=== PATIENT | male | born 1970 | race African-American/Black ===

== ENCOUNTER 2021-11-08 13:46 | Emergency (ER) | payer MEDICAID ==
[~2021-11-08] VITALS: Ht 177.8 cm; Wt 95.5 kg
[2021-11-08] MEDS ORDERED: normal saline 1000ML IV soln IVB ONE (13:50)
[2021-11-08] MEDS ORDERED: proCHLORperazine 10 MG/2 ml inj IV ONE (13:50)
[2021-11-08] MEDS ORDERED: mag hydrox/Alum hydrox/simeth 30ml oral suspension PO ONE (13:50)
[2021-11-08] MEDS ORDERED: famotidine/PF 10 mg/ml inj IV ONE (13:50)
[2021-11-08] MEDS ORDERED: sucralfate 1 gm tablet PO ONE (13:50)
[2021-11-08] MEDS ORDERED: LIDOcaine Viscous 15ml cup MM ONE (13:50)
[2021-11-08 14:18] LABS: BASOPHILS % (AUTO) 0.3 % (0-1); EOSINOPHILS # (AUTO) 0.1 X10'3 (0-0.9); EOSINOPHILS % (AUTO) 1.1 % (0-6); HEMATOCRIT 47.8 % (42.0-52.0); HEMOGLOBIN 16.1 g/dl (14.0-17.9); LYMPHOCYTES # (AUTO) 1.8 X10'3 (1.1-4.8); LYMPHOCYTES % (AUTO) 25.7 % (21-51); MEAN CORPUSCULAR HEMOGLOBIN 27.2 PG (27.0-31.0); MEAN CORPUSCULAR HGB CONC 33.6 g/dL (33.0-36.5); MEAN PLATELET VOLUME 7.3 FL (7.4-10.4); MONOCYTES # (AUTO) 0.4 X10'3 (0-0.9); MONOCYTES % (AUTO) 5.8 % (2-12); NEUTROPHILS # (AUTO) 4.7 X10'3 (1.8-7.7); NEUTROPHILS % (AUTO) 67.1 % (42-75); PLATELET COUNT 396 X10'3 (140-440); RED CELL DISTRIBUTION WIDTH 14.6 % (11.5-14.5); WHITE BLOOD COUNT 7.1 X10'3 (4.5-11.0)
[2021-11-08 14:40] LABS: ALBUMIN 4.5 G/DL (3.4-5.0); ALBUMIN/GLOBULIN RATIO 1.1 (1.1-1.5); ALKALINE PHOSPHATASE 75 IU/L (46-116); ANION GAP 12 (8-16); ASPARTATE AMINO TRANSFERASE 25 U/L (10-37); BILIRUBIN,TOTAL 1.1 MG/DL (0.1-1.0); BLOOD UREA NITROGEN 18 MG/DL (7-18); BUN/CREATININE RATIO 12.3 (5.4-32.0); CALCIUM 9.6 MG/DL (8.5-10.1); CHLORIDE 104 MMOL/L (99-107); CREATININE 1.46 MG/DL (0.60-1.10); GLUCOSE 146 MG/DL (70-104); LIPASE 76 U/L (73-393); POTASSIUM 3.9 MMOL/L (3.5-5.1); SODIUM 139 MMOL/L (135-145); TOTAL CARBON DIOXIDE 22.7 MMOL/L (24-32); TOTAL PROTEIN 8.6 G/DL (6.4-8.2); eGFR 51 ML/MIN
[2021-11-08 14:50] VITALS: BP 183/106
[2021-11-08 14:58] LABS: ALANINE AMINOTRANSFERASE 33 U/L (12-78)
[2021-11-08] MEDS ORDERED: LISI10TA27 PO (15:30)
[2021-11-08] MEDS ORDERED: PANT20TA18 PO (15:30)
== END 2021-11-08 20:33 ==
LOC: ER 13:46 → EEVIPCON 13:46 → ER 20:33
DX: K29.00 Acute gastritis without bleeding (principal); I10 Essential (primary) hypertension; Z79.899 Other long term (current) drug therapy
CPT/HCPCS: 36415; 80053; 83690; 84484; 85025; 93005; 96374; 96375; 99284; J0780; J3490; J7030

== ENCOUNTER 2023-06-20 08:47 | Inpatient (IN) | payer MEDICAID ==
[2023-06-14 17:08] LABS: BASOPHILS % (AUTO) 0.5 % (0-1); EOSINOPHILS # (AUTO) 0.2 X10'3 (0-0.9); EOSINOPHILS % (AUTO) 2.9 % (0-6); LYMPHOCYTES % (AUTO) 26.8 % (21-51); MEAN CORPUSCULAR HEMOGLOBIN 27.6 PG (27.0-31.0); MEAN CORPUSCULAR HGB CONC 33.3 g/dL (33.0-36.5); MEAN PLATELET VOLUME 7.3 FL (7.4-10.4); MONOCYTES # (AUTO) 0.4 X10'3 (0-0.9); MONOCYTES % (AUTO) 5.5 % (2-12); NEUTROPHILS # (AUTO) 4.9 X10'3 (1.8-7.7); NEUTROPHILS % (AUTO) 64.3 % (42-75); PRE OP HEMATOCRIT 41.2 % (42.0-52.0); PRE OP HEMOGLOBIN 13.7 g/dL (14.0-17.9); PRE OP PLATELET COUNT 355 X10'3 (140-440); PRE OP WHITE BLOOD COUNT 7.6 10'3 (4.8-10.8); RED BLOOD COUNT 4.96 X10'6 (4.70-6.10); RED CELL DISTRIBUTION WIDTH 15.3 % (11.5-14.5)
[2023-06-14 17:24] LABS: BILIRUBIN,URINE NEGATIVE (Neg); CLARITY,URINE CLEAR (Clear); COLOR,URINE YELLOW (Yellow); GLUCOSE, URINE NEGATIVE (Neg); KETONES,URINE NEGATIVE (Neg); LEUKOCYTE ESTERASE ,URINE NEGATIVE (Neg); NITRITES, URINE NEGATIVE (Neg); OCCULT BLOOD,URINE NEGATIVE (Neg); PROTEIN,URINE NEGATIVE (Neg); UROBILINOGEN,URINE 0.2 E.U/dL (0.2-1.0)
[2023-06-14 17:31] LABS: UA COLLECTION TYPE CLN CATCH MIDSTREAM
[2023-06-14 17:42] LABS: ALBUMIN 4.5 G/DL (3.4-5.0); ALBUMIN/GLOBULIN RATIO 1.4 (1.1-1.5); ALKALINE PHOSPHATASE 67 IU/L (46-116); BLOOD UREA NITROGEN 19 MG/DL (7-18); CALCIUM 8.8 MG/DL (8.5-10.1); CHLORIDE 104 MMOL/L (99-107); CREATININE 1.46 MG/DL (0.60-1.10); PRE OP ALT 51 U/L (30-65); PRE OP ANION GAP 11 (8-16); PRE OP AST 31 U/L (10-37); PRE OP BILIRUB, TOTAL 0.5 MG/DL (0.0-1.0); PRE OP GLUCOSE 134 MG/DL (70-104); PRE OP POTASSIUM 3.9 MMOL/L (3.4-5.1); PRE OP SODIUM 141 MMOL/L (135-145); TOTAL CARBON DIOXIDE 25.8 MMOL/L (24-32); TOTAL PROTEIN 7.7 G/DL (6.4-8.2); eGFR 61 ML/MIN
[2023-06-20] VITALS (24 sets, daily range): BP systolic 126–200; BP diastolic 77–126; PULSE 67–120; RESP 13–20; TEMP 98–98.6; O2SAT 90–100
[~2023-06-20] VITALS: Ht 177.8 cm; Wt 111.0 kg
[~2023-06-20 08:47] MED LIST: AMLO10TA PO; GABA300C PO; HYDR25TA4 PO; LOSA-415 PO; ceFOXitin 2GM-NS 100mL ADDvant 100 ML IV ONE
[2023-06-20] MEDS ORDERED: labetalol 20mg/4ml (5mg/ml) syringe IV PRN (08:50)
[2023-06-20] MEDS ORDERED: enalaprilat dihydrate 2.5mg/2ml vial IV PRN (08:50)
[2023-06-20] MEDS ORDERED: ringers solution, lacted 1,000 ML IV SCH (08:50)
[2023-06-20] MEDS ORDERED: meperidine/PF 25mg/ml syringe IV PRN ×4 (08:50→14:25)
[2023-06-20] MEDS ORDERED: morphine 4 MG/ML inj SYRINge IV PRN (08:50)
[2023-06-20] MEDS ORDERED: proCHLORperazine 10 MG/2 ml inj IV PRN ×2 (08:50→14:25)
[2023-06-20] MEDS ORDERED: morphine 2 MG/ML inj. syringe IV PRN ×2 (08:50→14:25)
[2023-06-20] MEDS ORDERED: ondansetron/PF 4mg/2ml inj IV PRN ×2 (08:50→14:25)
[2023-06-20] MEDS ORDERED: naloxone 0.4 mg/ml inj IV PRN (09:10)
[2023-06-20] MEDS: Potassium Cl inj 20 MEQ in ringers solution, lacted 1,000 ML IV SCH (09:10)
[2023-06-20] MEDS: normal saline 1000ml 1,000 ML IV SCH (09:10)
[2023-06-20] MEDS: ciprofloxacin lact 400MG/200ML 200 ML IV SCH (09:30)
[2023-06-20] MEDS: famotidine 20mg tablet PO ONE (10:07)
[2023-06-20] MEDS: ringers solution, lacted 1,000 ML IV SCH ×2 (10:07→14:25)
[2023-06-20 11:18] LABS: ALANINE AMINOTRANSFERASE 33 U/L (12-78); ALBUMIN/GLOBULIN RATIO 1.3 (1.1-1.5); ALKALINE PHOSPHATASE 65 IU/L (46-116); ASPARTATE AMINO TRANSFERASE 17 U/L (10-37); BILIRUBIN,TOTAL 0.7 MG/DL (0.1-1.0); BLOOD UREA NITROGEN 9 MG/DL (7-18); BUN/CREATININE RATIO 6.5 (10.0-20.0); CALCIUM 8.6 MG/DL (8.5-10.1); CREATININE 1.39 MG/DL (0.60-1.10); GLUCOSE 117 MG/DL (70-104); POTASSIUM 4.4 MMOL/L (3.5-5.1); SODIUM 141 MMOL/L (135-145); TOTAL CARBON DIOXIDE 26.6 MMOL/L (24-32); TOTAL PROTEIN 7.1 G/DL (6.4-8.2); eCRCL 63 ML/MIN; eGFR 64 ML/MIN
[2023-06-20 11:20] LABS: ANION GAP 8 (8-16); CHLORIDE 106 MMOL/L (99-107)
[2023-06-20] MEDS: gabapentin 300mg capsule PO SCH (13:00)
[2023-06-20] MEDS ORDERED: BUPIVAcaine 2.5mg/ml inj 50ml vial (contains preservative) ONE (13:09)
[2023-06-20] MEDS ORDERED: midazolam 1 mg/ML 2ml injection ONE ×2 (13:29→17:28)
[2023-06-20] MEDS ORDERED: fentaNYL /PF 50mcg/ml 5ml ampule ONE ×2 (13:30→15:17)
[2023-06-20] MEDS ORDERED: BUPIVAcaine/PF 2.5mg/ml (0.25%) 10ml vial ONE (13:32)
[2023-06-20] MEDS ORDERED: BUPIVACAINE liposomal/PF 13.3 MG/ML vial IM ONE (13:32)
[2023-06-20] MEDS ORDERED: sevoflurane 250ml liquid IH ONE (13:56)
[2023-06-20] MEDS ORDERED: HYDROmorphone/PF 0.2 MG/ML SYRINGE IV PRN (14:25)
[2023-06-20] MEDS ORDERED: hydrALAZINE 20mg/ml inj. IV PRN (14:25)
[2023-06-20] MEDS: BUPIVAcaine/PF 2.5 mg/ml (0.25%) 30ml vial IJ ONE (14:40)
[2023-06-20] MEDS ORDERED: rocuronium 10mg/ml inj IV ONE ×2 (14:43→15:17)
[2023-06-20] MEDS ORDERED: propofol inj 20 ML IV ONE ×2 (14:43)
[2023-06-20] MEDS ORDERED: LIDOcaine 2% (20mg/ml) 5ml vial ONE (14:43)
[2023-06-20] MEDS ORDERED: ePHEDrine 50MG/ML INJ. ONE (16:48)
[2023-06-20] MEDS ORDERED: ondansetron/PF 4mg/2ml inj ONE (16:48)
[2023-06-20] MEDS ORDERED: dexamethasone sod phosphate 4mg/ml inj. ONE (16:48)
[2023-06-20] MEDS ORDERED: sugammadex 200mg/2ml injection IV ONE (17:15)
[2023-06-20] MEDS: LORazepam 2 mg/ml vial ONE (17:33)
[2023-06-20] MEDS: HYDROmorphone/PF 0.2 MG/ML SYRINGE IV PRN (17:39)
[2023-06-20] MEDS: morphine 4 MG/ML inj SYRINge IV PRN (17:50)
[2023-06-20] MEDS: acetaminophen 1,000mg/100ml IV 100 ML IV ONE (18:03)
[2023-06-20] MEDS: HYDROmorph/NS 0.2 mg/ml PCA 100 ML IV SCH (18:07)
[2023-06-20] MEDS: ketorolac tromethamine 15mg/ml inj. IV ONE (18:53)
[2023-06-20] MEDS: labetalol 20mg/4ml (5mg/ml) syringe IV PRN (18:58)
[2023-06-20] MEDS ORDERED: sennosides/docusate sodium tablet PO SCH (20:00)
[2023-06-20] MEDS ORDERED: docusate sod 100mg capsule PO SCH (20:00)
[2023-06-20] MEDS: fluconazole 150mg tablet PO ONE (22:47)
[2023-06-21] VITALS (9 sets, daily range): BP systolic 132–165; BP diastolic 80–95; PULSE 91–109; RESP 16–18; TEMP 97.5–98.6; O2SAT 92–100
[2023-06-21 04:09] LABS: BASOPHILS % (AUTO) 0.3 % (0-1); EOSINOPHILS % (AUTO) 0 % (0-6); HEMOGLOBIN 14.2 g/dl (14.0-17.9); LYMPHOCYTES # (AUTO) 0.4 X10'3 (1.1-4.8); LYMPHOCYTES % (AUTO) 2.8 % (21-51); MEAN CORPUSCULAR HEMOGLOBIN 27.6 PG (27.0-31.0); MEAN CORPUSCULAR HGB CONC 33.8 g/dL (33.0-36.5); MEAN CORPUSCULAR VOLUME 81.5 FL (78-98); MEAN PLATELET VOLUME 7.1 FL (7.4-10.4); MONOCYTES # (AUTO) 0.6 X10'3 (0-0.9); MONOCYTES % (AUTO) 3.9 % (2-12); NEUTROPHILS # (AUTO) 14.3 X10'3 (1.8-7.7); PLATELET COUNT 337 X10'3 (140-440); RED BLOOD COUNT 5.15 X10'6 (4.70-6.10); RED CELL DISTRIBUTION WIDTH 15.2 % (11.5-14.5); WHITE BLOOD COUNT 15.4 X10'3 (4.5-11.0)
[2023-06-21 04:17] LABS: ALBUMIN 3.6 G/DL (3.4-5.0); ANION GAP 7 (8-16); BLOOD UREA NITROGEN 10 MG/DL (7-18); BUN/CREATININE RATIO 7.4 (10.0-20.0); CHLORIDE 103 MMOL/L (99-107); CREATININE 1.36 MG/DL (0.60-1.10); GLUCOSE 173 MG/DL (70-104); POTASSIUM 4.5 MMOL/L (3.5-5.1); SODIUM 136 MMOL/L (135-145); TOTAL CARBON DIOXIDE 25.6 MMOL/L (24-32); eCRCL 64 ML/MIN; eGFR 66 ML/MIN
[2023-06-21] MEDS: losartan 25mg tablet PO SCH (09:12)
[2023-06-21] MEDS: amLODIPine 5mg tablet PO SCH (09:13)
[2023-06-21] MEDS: HYDROchlorothiazide 25mg tablet PO SCH (10:49)
[2023-06-21] MEDS: mag hydrox/Alum hydrox/simeth 30ml oral suspension PO ONE (13:09)
[2023-06-21] MEDS: gabapentin 300mg capsule PO ONE (13:42)
[2023-06-21] MEDS: enoxaparin 30mg/0.3ml syringe SUBCUT SCH (20:40)
[2023-06-21] MEDS: gabapentin 300mg capsule PO SCH (20:41)
[2023-06-22 06:07] LABS: BASOPHILS % (AUTO) 0.2 % (0-1); EOSINOPHILS % (AUTO) 0 % (0-6); HEMOGLOBIN 13.7 g/dl (14.0-17.9); LYMPHOCYTES % (AUTO) 7.8 % (21-51); MEAN CORPUSCULAR HEMOGLOBIN 27.5 PG (27.0-31.0); MEAN CORPUSCULAR HGB CONC 33.4 g/dL (33.0-36.5); MEAN CORPUSCULAR VOLUME 82.3 FL (78-98); MEAN PLATELET VOLUME 7.5 FL (7.4-10.4); MONOCYTES # (AUTO) 0.6 X10'3 (0-0.9); MONOCYTES % (AUTO) 4.8 % (2-12); NEUTROPHILS # (AUTO) 10.7 X10'3 (1.8-7.7); NEUTROPHILS % (AUTO) 87.2 % (42-75); PLATELET COUNT 335 X10'3 (140-440); RED BLOOD COUNT 4.97 X10'6 (4.70-6.10); RED CELL DISTRIBUTION WIDTH 15.4 % (11.5-14.5); WHITE BLOOD COUNT 12.3 X10'3 (4.5-11.0)
[2023-06-22 06:09] LABS: ALBUMIN 3.7 G/DL (3.4-5.0); ANION GAP 8 (8-16); BLOOD UREA NITROGEN 12 MG/DL (7-18); BUN/CREATININE RATIO 8.8 (10.0-20.0); CALCIUM 9.4 MG/DL (8.5-10.1); CHLORIDE 102 MMOL/L (99-107); CREATININE 1.37 MG/DL (0.60-1.10); GLUCOSE 144 MG/DL (70-104); POTASSIUM 4.5 MMOL/L (3.5-5.1); SODIUM 137 MMOL/L (135-145); TOTAL CARBON DIOXIDE 26.9 MMOL/L (24-32); eCRCL 64 ML/MIN; eGFR 66 ML/MIN
[2023-06-22 07:14] VITALS: BP 136/77; PULSE 95; RESP 16; TEMP 98.3; O2SAT 98
[2023-06-22 08:36] VITALS: RESP 16; O2SAT 98
[2023-06-22] MEDS: HYDROcodone/acetaminophen 10/325mg tab PO PRN (08:48)
[2023-06-22] MEDS: ondansetron/PF 4mg/2ml inj IV PRN (08:48)
[2023-06-22] MEDS: PCA WASTE DOCUMENTATION 1 MG ML MC SCH (09:32)
[2023-06-22 11:00] VITALS: BP 146/97; PULSE 114; RESP 16; TEMP 97.6; O2SAT 98
[2023-06-22] MEDS: diphenhydrAMINE 25mg capsule PO ONE (15:03)
[2023-06-22] MEDS: fluconazole 100mg tablet PO ONE (16:22)
[2023-06-22 18:00] VITALS: BP 137/89; PULSE 112; RESP 18; TEMP 97.7; O2SAT 95
[2023-06-22 20:00] VITALS: RESP 18; O2SAT 95
[2023-06-22 22:00] VITALS: BP 146/86; PULSE 104; RESP 16; TEMP 97.5; O2SAT 97
[2023-06-23 06:47] VITALS: BP 133/84; PULSE 109; RESP 18; TEMP 97.6; O2SAT 97
[2023-06-23 07:56] VITALS: BP_SYST 139; PULSE 66
[2023-06-23 08:00] VITALS: RESP 18
[2023-06-23 11:08] VITALS: RESP 16
== END 2023-06-23 12:17 | disposition home or self-care (01) | DRG 231 ==
LOC: PAS IN 08:47 → SUR 3N 19:42
PROVIDERS: ADMIT Surgery; ATTEND Surgery
PROC: 0DTF0ZZ Resection of Right Large Intestine, Open Approach (ICD-10-PCS; principal; 2023-06-20 13:56)
DX: C18.1 Malignant neoplasm of appendix (principal); L72.3 Sebaceous cyst; Z85.038 Personal history of other malignant neoplasm of large intestine
CPT/HCPCS: 36415; 80048; 80053; 81003; 82948; 85025; 86885; 86900; 86901; 87081; A4615; A4618; A7000; A9272; C1758; C9290; G0378; J0131; J0694; J0744; J1100; J1170; J1650; J1885; J2060; J2250; J2270; J2405; J2704; J3010; J3480; J3490; J7120; Q0163